=== PATIENT | male | born 1975 | race Caucasian/White ===

== ENCOUNTER 2016-12-10 09:36 | Emergency (ER) | payer OTHER ==
[2015-12-30 08:11] VITALS: BMI 31.4
[~2016-12-10 09:36] MED LIST: GABAPENTIN100 MG PO; HYDROCODONE-APA1 TAB PO; LISINOPRIL10 MG PO; MOBIC7.5 MG PO; NAPROSYN500 MG PO; ZANTAC150 MG PO
[2016-12-10 10:51] LABS: UDS - AMPHET NEGATIVE QUAL (NEGATIVE); UDS - BARB NEGATIVE QUAL (NEGATIVE); UDS - BENZO NEGATIVE QUAL (NEGATIVE); UDS - COCAINE NEGATIVE QUAL (NEGATIVE); UDS - METH NEGATIVE QUAL (NEGATIVE); UDS - OPIATE POSITIVE QUAL (NEGATIVE); UDS - PCP NEGATIVE QUAL (NEGATIVE); UDS - THC NEGATIVE QUAL (NEGATIVE)
[2016-12-10 10:56] LABS: APPEARANCE CLEAR (CLEAR); BILIRUBIN NEGATIVE (NEGATIVE); COLOR YELLOW (YELLOW); GLUCOSE NEGATIVE (NEGATIVE); KETONE NEGATIVE (NEGATIVE); LEUKOCYTE ESTERASE NEGATIVE (NEGATIVE); NITRITE NEGATIVE (NEGATIVE); PROTEIN NEGATIVE (NEGATIVE); UROBILINOGEN NORMAL (NORMAL)
[2016-12-10 10:58] LABS: CKMB 0.6 U/L (0.0-3.6); CREATINE KINASE 97 UL (21-232); THYROID STIMULATING HORMONE 2.58 uIU/mL (0.36-3.74); TROPONIN-I < 0.017 ng/mL (0.000-0.060)
== END 2016-12-10 12:27 | disposition home or self-care (01) ==
LOC: D.ER 09:36
PROVIDERS: Emergency Medicine
DX: R07.9 Chest pain, unspecified (principal); R00.2 Palpitations; R06.00 Dyspnea, unspecified; I49.3 Ventricular premature depolarization

== ENCOUNTER → 2017-01-03 13:43 | Outpatient (CLI) | payer OTHER ==
[2015-12-30 08:11] VITALS: BMI 31.4
== END | disposition home or self-care (01) ==
LOC: D.RT 13:43
DX: R06.02 Shortness of breath (principal)

== ENCOUNTER → 2017-01-15 08:38 | Outpatient (CLI) | payer OTHER ==
[2015-12-30 08:11] VITALS: BMI 31.4
--- NOTE | ~2017-01-15 | EC ---
PATIENT:YOLA PICHARDO DATE OF SERVICE: 01/15/17 SEX: M MEDICAL RECORD: [id number] DATE OF : 77 [facility] AGE OF PATIENT: 41 ADMISSION DATE: 01/15/17 REFERRING PHYSICIAN: INTERPRETING PHYSICIAN: NESTOR ANN MD ECHOCARDIOGRAM REPORT ECHO CHARGES 4 ECHO COMPLETE CLINICAL DIAGNOSIS: HTN HX OF BRADYCARDIA / ARRHYTHMIA ECHOCARDIOGRAPHIC MEASUREMENTS (adult normal given) AC root (d.<3.7cm) 3.4 cm LV Septum d (<1.2 cm> 1.1 cm Valve Excursion 1.8 cm LV Septum (systole) 1.3 cm Left Atria (s.<4.0cm> 4.1 cm LVPW d(<1.2cm) 1.1 cm RV (d.<2.3cm) 3.5 cm LVPW (sytole) 1.4 cm LV diastole(<5.6CM) 5.1 cm MV E-F(>70mm/sec) cm LV systole 4.2 cm LVOT Diameter 1.8 cm MV exc.(>10mm) 1.9 cm Est.ejection fraction (50-75%) % Pericardial Effusion N DOPPLER: LVIT cm/sec A 64.0 cm/sec E 92.0 cm/sec LA cm/sec RVSP 27 mmHg LVOT 96 cm/sec AOP1/2T m/s Asc. Ao 114 cm/sec RVOT 51 cm/sec RA cm/sec PA 109 cm/sec AV Gradient Peak 5.17 mmHg AV Mean 2.75 mmHg AV Area 2.3 cm MV Gradient Peak 3.62 mmHg MV Mean 1.64 mmHg MV Area cm COMMENTS: Book Jogger: Macy BLANKENSHIP Brusher Tender: 4 Dr. Ann TAPE# PACS DATE OF SERVICE: 01/15/2017 PROCEDURE: Transthoracic echocardiogram. FINDINGS: 1. The left ventricle is shown to be on the upper limits of normal to mildly dilated at 5.6 cm. The inflow characteristics are normal. There is considerable amount of dyssynchronous wall motion because of what appears to be an underlying bundle-branch block. The ejection fraction appears to be mildly reduced at 45%. ECHOCARDIOGRAM REPORT [id number] YOLA PICHARDO 2. The mitral valve structurally appears to be normal with mild mitral regurgitation. 3. The left atrium is mildly dilated with normal function. 4. The right atrium is mildly dilated with normal function. 5. The right ventricle is shown to be mildly dilated with preserved right ventricular function. 6. The aortic valve has trace aortic insufficiency, otherwise is grossly normal. 7. The tricuspid valve has trace tricuspid regurgitation with normal right ventricular systolic pressures. 8. The pulmonary valve is normal. 9. The pericardium is normal. CONCLUSION: The patient has mild dilated cardiomyopathy without significant regional wall motion abnormalities. TRANSINT:[id number] Voice Confirmation ID: [id number] DOCUMENT ID: [id number] NESTOR ANN MD CC: [id number] DICTATION DATE: 01/16/17 1503 SKI TOPPER: 01/16/171925 DEP CLI 01/15/17 [facility] [address] [place] [address]
== END | disposition home or self-care (01) ==
LOC: D.ECHO 08:38
DX: I10 Essential (primary) hypertension (principal)

== ENCOUNTER 2017-01-29 06:37 | Outpatient (CLI) | payer OTHER ==
--- NOTE | ~2017-01-29 | HEMODYNAMI ---
PATIENT:YOLA PICHARDO MEDICAL RECORD: [id number] : 77 LOCATION:[facility] ADMISSION DATE: 01/29/17 Generatedon:01/29/20178:26 Patient name: YOLA PICHARDO Patient #: [id number] SSN: : [id number] Date of study: 01/29/2017 Page: Of Hemodynamic Procedure Report Patient Data Patient Demographics Procedure consent was obtained First Name: YOLA Gender: Male Last Name: MARINO : 1975 [facility] Initial: ROLAN Age: 41 year(s) Patient #: [id number] Race: Unknown Additional ID: [id number] Contact details Address: [place] [address] State: [facility] Zip code: [address] Admission Admission Data Admission Date: 01/29/2017 Admission Time: 6:37 Lab Results Lab Result Date: 01/29/2017 Lab Result Time: 0:00 Biochemistry Name Units Result Min Max Creatinine mg/dl 1.1 --(--*-)-- 0.6 1.3 CBC Name Units Result Min Max Hemoglobin g/dl 15.3 --(-*--)-- 13.5 17.5 Procedure Procedure Types Cath Procedure Diagnostic Procedure [facility] w/Coronaries Miscellaneous Procedures Moderate Sedation up to 30 minutes Procedure Description Procedure Date Procedure Date: 01/29/2017 Procedure Start Time: 8:07 Procedure End Time: 8:25 Procedure Staff Name Function Kevin Carolina MD Performing Physician Anne Arias RT Scrub Henry Pinto RT Scrub Brandin Holland RN Nurse Talia Snyder RT Monitor Christy Martin RN Business Development Sales Executive Procedure Data Cath Procedure Fluoroscopy Diagnostic fluoroscopy Total fluoroscopy Time: 5.6 time: 5.6 min min Diagnostic fluoroscopy Total fluoroscopy dose: 426 dose: 426 mGy mGy Contrast Material Contrast Material Type Amount (ml) Isovue 300 36 Entry Location Entry Primary Successful Side Size Upsize Upsize Entry Closure Horn ccessful Closure Location (Fr) 1 (Fr) 2 (Fr) Remarks Device Remarks Radial Right 6 Fr Mechanical artery Short Compression Estimated blood loss: 5 ml Diagnostic catheters Device Type Used For End Catheter Placement Terumo 5Fr Aldair 110cm LV Angiography catheter Terumo 5Fr Aldair 110cm Left Coronary catheter Angiography Terumo 5Fr Aldair 110cm Right Coronary catheter Angiography Diagnostic Infinity 5Fr Right Coronary AR 2 MOD catheter Angiography Procedure Complications No complications Procedure Medications Medication Administration Route Dosage 0.9% NaCl I.V. 100 ml/hr Oxygen NC 2 l/min Heparin Flush Bag added to field 2 bags (1000units/500ml NS) Lidocaine 2% added to field 20 Versed I.V. 2 mg Fentanyl I.V. 25 mcg Radial Cocktail added to field 1 syringe (Verapomil 2mg/Nitro 400mcg/Heparin 1500units) Radial Cocktail I.A. 1 syringe (Verapomil 2mg/Nitro 400mcg/Heparin 1500units) Versed I.V. 1 mg Fentanyl I.V. 25 mcg Benadryl I.V. 25 mg Hemodynamics Rest HGB: 15.3 (g/dl) Heart Rate: 88 (bpm) Pressure Samples Time Site Value (mmHg) Purpose Heart Use Rate(bpm) 8:12 LV 117/7,10 EDP 96 8:13 AO 114/84(97) Pullback 91 8:13 LV 116/10,15 Pullback 91 Gradients Valve Time Site 1 Site 2 Mean SEP/DFP Peak To Heart Use (mmHg) (sec/min) Peak Rate (mmHg) (bpm) Aortic 8:13 LV AO 2 8 2 91 116/10,15 114/84(97) Calculations Valve P-P Mean Valve Index Valve Source Name Gradient Area Flow (cm2) Aortic 2 2 2 2 Snapshots Pre Cath Intra NCS Post Cath Vital Signs Time Heart Resp SPO2 etCO2 [id number] NIBP (mmHg) Rhythm Pain Sedation Rate (ipm) (%) (mmHg) (mmHg) Status Level (bpm) 7:54:38 84 16 98 0 0 157/104(135) NSR 0 (11) 10(A) , No pain 7:59:22 83 15 92 0 0 158/92(112) NSR 0 (11) 10(A) , No pain 8:04:11 80 21 99 0 0 151/91(118) NSR 0 (11) 10(A) , No pain 8:08:58 83 14 98 0 0 153/96(127) NSR 0 (11) 10(A) , No pain 8:13:42 92 20 95 0 0 126/83(100) NSR 0 (11) 10(A) , No pain 8:18:23 86 21 94 0 0 130/86(103) NSR 0 (11) 10(A) , No pain 8:23:04 86 16 96 0 0 133/84(106) NSR 0 (11) 10(A) , No pain Medications Time Medication Route Dose Verified Delivered Reason Notes E ffectiveness by by 7:53:05 0.9% NaCl I.V. 100 Brandin Brandin Per ml/hr Amalia Holland physician RN RN 7:53:24 Oxygen NC 2 l/min Brandin Brandin Per Amalia Holland physician RN RN 7:53:41 Heparin Flush added 2 bags Brandin Brandin used for Bag to Amalia Holland procedure (1000units/500ml RN RN NS) 7:53:59 Lidocaine 2% added 20ml Brandin Brandin for local to vial Lorigan Lorigan anesthetic field RN RN 8:04:41 Versed I.V. 2 mg Brandin Brandin for sedation Amalia Holland RN RN 8:04:55 Fentanyl I.V. 25 mcg Brandin Brandin for sedation Amalia Holland RN RN 8:06:47 Radial Cocktail added 1 Brandin Brandin used for (Verapomil to syringe Lorigan Lorigan procedure 2mg/Nitro RN RN 400mcg/Heparin 1500units) 8:11:20 Radial Cocktail I.A. 1 Brandin Kevin for (Verapomil syringe Amalia Carolina MD vasodilation 2mg/Nitro RN 400mcg/Heparin 1500units) 8:18:14 Versed I.V. 1 mg Brandin Brandin for sedation Amalia Holland RN RN 8:18:23 Fentanyl I.V. 25 mcg Brandin Brandin for sedation Amalia Holland RN RN 8:21:06 Benadryl I.V. 25 mg Brandin Brandin Per Amalia Holland physician RN net applications developer Log Time Note 7:23:42 Lab Result : Creatinine 1.1 mg/dl 7:23:42 Lab Result : Hemoglobin 15.3 g/dl 7:40:25 Christy Martin RN sent for patient. Start room use. 7:40:26 Time tracking: Regular hours 7:40:32 Plan of Care:Hemodynamics will remain stable., Cardiac rhythm will remain stable., Comfort level will be maintained., Respiratory function will remain adequate., Patient/ family verbilizes understanding of procedure., Procedure tolerated without complication., Recovers from procedure without complications.. 7:46:34 Patient received from Pre/Post Procedure Room to CCL 1 Alert and oriented. Tansferred to table in Supine position. 7:46:35 Warm blankets applied, and pauline hugger turned on for patient comfort. 7:46:35 Correct patient and procedure confirmed by team. 7:46:37 Signed procedure consent form obtained from patient. 7:46:37 ECG and BP/O2 sat monitors applied to patient. 7:46:38 Full Disclosure recording started 7:52:53 Vital chart was started 7:52:58 Baseline sample Acquired. 7:53:05 0.9% NaCl 100 ml/hr I.V. was administered by Brandin Holland RN; Per physician; 7:53:05 Rhythm: sinus rhythm 7:53:20 H&P Date Dictated: 01/24/2017 Within 30 days and on chart., H&P Addendum completed by physician on day of procedure. (MUST COMPLETE FOR ALL OUTPATIENTS). 7:53:21 Pre-procedure instructions explained to patient. 7:53:22 Pre-op teaching completed and patient verbalized understanding. 7:53:24 Oxygen 2 l/min NC was administered by Brandin Holland RN; Per physician; 7:53:41 Heparin Flush Bag (1000units/500ml NS) 2 bags added to field was administered by Brandin Holland RN; used for procedure; 7:53:43 Family in waiting room. 7:53:45 Patient NPO since Midnight. 7:53:47 Is the patient allergic to Iodine/contrast media? No. 7:53:57 Is patient on blood thinner?Yes 7:53:59 Lidocaine 2% 20ml vial added to field was administered by Brandin Holland RN; for local anesthetic; 7:54:00 ACC The patient was administered the following blood thiners within the last 24 hours: ACCPlavix 7:54:02 Patient diabetic? No. 7:54:05 Previous problem with sedation/anesthesia? No ? 7:54:10 Snore? No 7:54:11 Sleep apnea? No 7:54:13 Deviated septum? No 7:54:14 Opens mouth fully? Yes 7:54:15 Sticks out tongue? Yes 7:54:17 Airway obstruction? No ? 7:54:19 Dentures? No ? 7:54:21 Pre procedure: right dorsailis pedis pulse 1+ Palpable, but thready & weak; easily obliterated 7:54:24 Modified Chapito's test Ulnar < 7 seconds 7:54:26 Patient pain scale 0/10 ?. 7:54:33 IV patent on arrival in left forearm with 0.9% NaCl at [facility]. 7:54:35 Lab results completed and on chart. 7:54:39 Right Radial & Right Groin area was prepped with chlora-prep and draped in sterile fashion 7:54:41 Alarms reviewed by R. N. 7:54:42 Sharps counted by scrub and verified by R.N. 7:54:49 Use device set Radial Dx 7:54:51 Tegaderm 4 x 4 opened to sterile field. 7:54:52 Acist Hand Control opened to sterile field. 7:54:53 Acist Manifold opened to sterile field. 7:54:54 Acist Syringe opened to sterile field. 7:54:54 Medline Cath Pack opened to sterile field. 7:54:55 Bag Decanter opened to sterile field. 7:54:55 Terumo 6Fr Slender Glidesheath opened to sterile field. 7:54:55 St Ralf 260cm J .035 wire opened to sterile field. 7:54:56 MBrace Wrist Support opened to sterile field. 7:58:42 Final Timeout: patient, procedure, and site verified with staff and physician. All members of the team are in agreement. 7:58:46 Right Radial site verified by team. 7:58:52 Physical assessment completed. ASA score P 2 - A patient with mild systemic disease as per Kevin Carolina MD. 7:58:56 Sedation plan: IV Moderate Sedation Versed, Fentanyl 8:03:11 Zero performed for pressure channel P1 8:04:41 Versed 2 mg I.V. was administered by Brandin Holland RN; for sedation; 8:04:55 Fentanyl 25 mcg I.V. was administered by Brandin Holland RN; for sedation; 8:06:47 Radial Cocktail (Verapomil 2mg/Nitro 400mcg/Heparin 1500units) 1 syringe added to field was administered by Brandin Holland RN; used for procedure; 8:07:09 Procedure started. 8:07:32 Local anesthetic to right radial artery with Lidocaine 2% by Kevin Carolina MD.INITIAL ACCESS ONLY 8:10:20 A 6 Fr Short sheath was inserted into the Right Radial artery 8:11:20 Radial Cocktail (Verapomil 2mg/Nitro 400mcg/Heparin 1500units) 1 syringe I.A. was administered by Kevin Carolina MD; for vasodilation; 8:11:20 A Terumo 5Fr Aldair 110cm catheter was advanced over the wire and used for LV Angiography. 8:12:48 LV gram done using RICO 8:12:52 Injector settings: Ml/sec: 12, Volume: 8, 8:12:54 LV hemodynamics recorded. 8:13:44 A Terumo 5Fr Aldair 110cm catheter was advanced over the wire and used for Left Coronary Angiography. 8:18:14 Versed 1 mg I.V. was administered by Brandin Holland RN; for sedation; 8:18:23 Fentanyl 25 mcg I.V. was administered by Brandin Holland RN; for sedation; 8:19:07 A Terumo 5Fr Aldair 110cm catheter was advanced over the wire and used for Right Coronary Angiography. REMOVED. UNABLE TO CANNULATE. 8:20:16 A Diagnostic Infinity 5Fr AR 2 MOD catheter was advanced over the wire and used for Right Coronary Angiography. 8:21:06 Benadryl 25 mg I.V. was administered by Brandin Holland RN; Per physician; 8:21:22 Catheter removed. 8:22:00 Terumo TR Band Large opened to sterile field. 8:22:07 Sheath removed intact; hemostasis achieved with Mechanical Compression to the Right Radial artery. 8:22:09 Procedure ended.(Physican Out) 8:22:18 Fluoroscopy time 05.60 minutes. 8:22:24 Fluoroscopy dose: 426 mGy 8:22:24 Flurop Dose total: 426 8:22:31 Contrast amount:Isovue 300 36ml. 8:22:32 Sharps counted by scrub and verified by R.N. 8:22:34 TR band inflated with 12cc of air. 8:22:35 Insertion/operative site no bleeding no hematoma. 8:22:44 Post right radial artery:stable, clean and dry 8:22:45 Post Procedure Pulses reassessed and unchanged 8:22:49 Post-procedure physical assessment completed. ASA score P 2 - A patient with mild systemic disease as per Kevin Carolina MD. 8:22:51 Post procedure rhythm: unchanged. 8:22:53 Estimated blood loss: 5 ml 8:23:03 Post procedure instruction explained to patient.Patient verbalizes understanding. 8:23:03 Patient needs reinforcement of post procedure teaching. 8:23:12 Procedure type changed to Cath procedure, Diagnostic procedure, LHC, LHC w/Coronaries, Miscellaneous Procedures, Moderate Sedation up to 30 minutes 8:23:18 Procedure Complication : No complications 8:23:20 See physician's report for complete and final results. 8:23:34 Procedure and supply charges have been captured, reviewed, submitted and are correct. 8:25:37 Vital chart was stopped 8:25:40 Report given to Pre/Post Procedure Room. 8:25:43 Patient transfered to Pre/Post Procedure Room with Stretcher. 8:25:51 Procedure ended. 8:25:51 Full Disclosure recording stopped 8:25:57 End room use (Document Last) Device Usage Item Name Manufacture Quantity Catalog Hospital Part Current Minimal Lot# / Number Charge Number Stock Stock Serial# Code Tegaderm 4 1 [id number] 5 x 4 Acist Hand Acist 1 46061 583103 644566 [id number] 5 Control [employer] Inc Acist Acist 1 08499 438583 605901 616052 5 Manifold Medical [employer] Inc Acist Acist 1 60152 038337 825733 292292 20 Syringe Medical Systems Inc Medline Cardinal 1 [id number] 55344 146835 5 Cath Pack Health Bag Microtek 1 2001S [id number] 50602 901683 5 [employer]aze [employer] Terumo 6Fr Terumo 1 [id number] 841237 900900 390154 [address] R[address] St Ralf 1 445282 333742 053007 375941 30 260cm J .035 wire MBrace Advanced 1 [id number] 375444 77129 702594 5 Wrist Vascular Support Dynamics Terumo 5Fr Terumo 1 36-0424 [id number] 273779 417475 5 Aldair 110cm catheter Diagnostic Cardinal 1 [id number] 968819 655377 037362 20 Infinity [employer] 5Fr AR 2 MOD catheter Terumo TR Terumo 1 [id number] 395065 757229 825440 40 Band Large Signature Audit [place] Stage Time Signature Unsigned Intra-Procedure 01/29/2017 Talia 8:26:08 AM Counts RT(R) Signatures Monitor : Talia Signature : Counts RT Date : Time : [address] [place] [address]
[2017-01-29] MEDS ORDERED: HCTZ25 MG PO (06:46)
[2017-01-29] MEDS ORDERED: ROBAXIN500 MG PO (06:47)
[2017-01-29] MEDS ORDERED: TESTOSTERON200 MG/ML IM (06:48)
[2017-01-29] MEDS ORDERED: FISH OIL 1,2001 CAP PO (06:48)
[2017-01-29] MEDS ORDERED: ADVIL200 MG PO (06:49)
[2017-01-29] MEDS ORDERED: LIPITOR10 MG PO (06:50)
[2017-01-29 06:57] VITALS: BP 158/99; BMI 29.2
[2017-01-29 07:04] LABS: BASOPHILS 0.2 % (0-2); EOSINOPHILS 3.4 % (0-7); HEMATOCRIT 42.4 % (42.0-54.0); HEMOGLOBIN 15.3 g/dL (13.5-17.5); IMMATURE GRANULOCYTES 0.2 % (0-5); MCH 30.7 pg (26.0-34.0); MCHC 36.1 g/dL (31.0-37.0); MEAN PLATELET VOLUME 10.5 fL (7.4-10.4); MONOCYTES 13.1 % (2-11); NEUTROPHILS 58.1 % (40-80); PLATELET COUNT 178 10x3/uL (130-400); RBC 4.99 10x6/uL (4.20-6.10); RDW 13.1 % (11.5-14.5); WBC 6.5 10x3/uL (4.8-10.8)
[2017-01-29 07:11] LABS: CALC OSMOLALITY 272 mosm/kg (275-300); CALCIUM 8.5 mg/dL (8.5-10.1); CARBON DIOXIDE 27.8 mmol/L (21.0-32.0); CHLORIDE - SERUM 101 mmol/L (98-107); CREATININE - SERUM 1.1 mg/dL (0.6-1.3); GLUCOSE 100 mg/dL (74-106); POTASSIUM - SERUM 3.5 mmol/L (3.5-5.1); SODIUM 135 mmol/L (136-145); UREA NITROGEN 20 mg/dL (7-18); eGFR NON AFRICAN AMERICAN 79 mL/min (90-120)
--- NOTE | 2017-01-29 08:48 | NUR ---
RECIEVED TO ROOM VIA STRETCHER FROM CUSTOMER SUCCESS SPECIALIST WITH TR BAND TO THE R/WRIST CDI NO BLEEDING NO HEMATOMA NOTED. REPORTS OF A CLEAN CATH WITH NO INTERVENTION AT THIS TIME. VSS WITH CHEST PAIN DENIED
--- NOTE | 2017-01-29 08:55 | NUR ---
SITTING WITH HOB UP 30 DEGREES VSS AND CHEST PAIN DENIED. TR BAND TO R/WRIST CDI NO BLEEDING NO HEMATOMA NOTED. INSTRUCTED PATIENT TO KEEP RUE STRAIGHT NO BENDING OR FLEXING OF WRIST. TOLERATING SANDWICH AND SODA WITH NAUSEA DENIED.
--- NOTE | 2017-01-29 09:20 | NUR ---
VSS WITH CHEST PAIN DENIED. SITTING WITH HOB UP 30 DEGREES FAMILY IS AT BEDSIDE. 2 CC AIR REMOVED FROM TR BAND WITH NO BLEEDING NO HEMATOMA NOTED.
--- NOTE | 2017-01-29 09:30 | NUR ---
3CC OF AIR REMOVED FROM TR BAND, NO BLEEDING NOTED.
--- NOTE | 2017-01-29 09:35 | NUR ---
2 CC AIR REMOVED FROM TR BAND WITH NO BLEEDING NOTED
--- NOTE | 2017-01-29 09:50 | NUR ---
PIV REMOVED WITH DRESSING APPLIED. 2 CC AIR REMOVED FROM TR BAND WITH NO BLEEDING NO HEMATOMA NOTED. PATIENT DENIED CHEST PAIN WITH VSS. UP TO GET DRESSED FOR DISCHARGE HOME
--- NOTE | 2017-01-29 09:55 | NUR ---
UP TO RESTROOM TO VOID.
--- NOTE | 2017-01-29 10:00 | NUR ---
REMAINING AIR REMOVED FROM TR BAND AND DRESSING PLACED TO SITE. DISCHARGE INSTRUCTIONS GIVEN, VERBALIZED UNDERSTANDING.
--- NOTE | 2017-01-29 10:08 | NUR ---
TAKEN OUT VIA WHEELCHAIR BY CATH ADMINISTRATIVE FELLOW. LEFT FACILITY WITH FAMILY MEMBER AND ALL PERSONAL BELONGINGS.
[2017-02-14] MEDS ORDERED: KEFLEX500 MG PO (10:06)
== END 2017-01-29 10:08 | disposition home or self-care (01) ==
LOC: D.CATH 06:37
PROVIDERS: Internal Medicine Cardiovascular Disease
DX: R07.9 Chest pain, unspecified (principal); I47.1 Supraventricular tachycardia; I10 Essential (primary) hypertension; R94.39 Abnormal result of other cardiovascular function study; Z82.49 Family history of ischemic heart disease and other diseases of the circulatory system; Z01.812 Encounter for preprocedural laboratory examination

== ENCOUNTER → 2017-02-14 06:24 | Outpatient (CLI) | payer OTHER ==
--- NOTE | ~2017-02-14 | HEMODYNAMI ---
PATIENT:YOLA PICHARDO MEDICAL RECORD: [id number] : 77 LOCATION:D.CAT ADMISSION DATE: 02/14/17 Generatedon:02/14/20179:23 Patient name: YOLA PICHARDO Patient #: [id number] SSN: : [id number] Date of study: 02/14/2017 Page: Of Hemodynamic Procedure Report Patient Data Patient Demographics Procedure consent was obtained First Name: YOLA Gender: Male Last Name: MARINO : 1975 [facility] Initial: ROLAN Age: 41 year(s) Patient #: [id number] Race: Unknown Additional ID: [id number] Contact details Address: [place] [address] State: [facility] Zip code: [address] Past Medical History Allergies Allergen Reaction Date Comments Reported Codeine 02/14/2017 Admission Admission Data Admission Date: 02/14/2017 Admission Time: 6:24 Procedure Procedure Types Cath Procedure Diagnostic Procedure PPM/ICD PPM Dual Implant Procedure Description Procedure Date Procedure Date: 02/14/2017 Procedure Start Time: 7:08 Procedure Staff Name Function Kevin Carolina MD Performing Physician Aby Gill RT Scrub Angelo Garcia RN Nurse Maikel Antonio RT Monitor Procedure Data Cath Procedure Fluoroscopy Diagnostic fluoroscopy Total fluoroscopy Time: 3.7 time: 3.7 min min Diagnostic fluoroscopy Total fluoroscopy dose: dose: 93.9 mGy 93.9 mGy Contrast Material Contrast Material Type Amount (ml) Visipaque 270 10 Estimated blood loss: 10 ml Procedure Medications Medication Administration Route Dosage Ancef (1Gm/50ml NS) I.V.P.B 1 g Ancef Irrigation Topical 1 g (1gm/500ml NS) 0.9% NaCl I.V. 100 ml/hr Versed I.V. 2 mg Fentanyl I.V. 50 mcg Versed I.V. 2 mg Fentanyl I.V. 50 mcg Versed I.V. 2 mg Fentanyl I.V. 50 mcg Versed I.V. 1 mg Hemodynamics Rest Heart Rate: 72 (bpm) Snapshots Pre Cath Intra NCS Post Cath Vital Signs Time Heart Resp SPO2 NIBP (mmHg) Rhythm Pain Sedation Rate (ipm) (%) Status Level (bpm) 8:11:05 69 17 98 139/94(102) NSR 0 (11) 10(A) , No pain 8:16:13 69 18 99 147/80(112) NSR 0 (11) 10(A) , No pain 8:21:34 76 16 98 140/91(120) NSR 0 (11) 10(A) , No pain 8:25:55 73 19 98 145/90(123) NSR 0 (11) 10(A) , No pain 8:30:15 81 18 97 145/93(118) NSR 0 (11) 10(A) , No pain 8:35:47 79 18 96 133/83(95) NSR 0 (11) 10(A) , No pain 8:39:58 74 16 98 121/94(110) NSR 0 (11) 10(A) , No pain 8:44:51 85 18 98 144/98(122) NSR 0 (11) 10(A) , No pain 8:49:05 72 17 99 139/89(106) NSR 0 (11) 10(A) , No pain 8:53:19 75 17 98 140/97(119) NSR 0 (11) 10(A) , No pain 8:57:39 64 18 97 134/87(102) NSR 0 (11) 10(A) , No pain 9:01:50 81 17 97 138/94(112) NSR 0 (11) 10(A) , No pain 9:06:52 76 18 97 132/97(111) NSR 0 (11) 10(A) , No pain 9:11:09 72 18 98 138/90(121) NSR 0 (11) 10(A) , No pain 9:15:23 82 17 98 144/98(113) NSR 0 (11) 10(A) , No pain 9:19:43 79 18 98 141/110(117) NSR 0 (11) 10(A) , No pain Medications Time Medication Route Dose Verified Delivered Reason Notes Effectiven ess by by 8:09:23 Ancef I.V.P.B 1 g Kevin Arboleda (1Gm/50ml Ge Garcia RN physician NS) 8:09:33 Ancef Topical 1 g Kevin Angelo Per Irrigation Ge Garcia RN physician (1gm/500ml NS) 8:09:47 0.9% NaCl I.V. 100 Kevin Angelo Per ml/hr Ge Garcia RN physician MD 8:27:13 Versed I.V. 2 mg Kevin Angelo for Ge Garcia RN sedation 8:27:21 Fentanyl I.V. 50 Kevin Angelo for mcg Ge Garcia RN sedation 8:32:13 Versed I.V. 2 mg Kevin Angelo for Ge Garcia RN sedation 8:32:18 Fentanyl I.V. 50 Kevin Angelo for mcg Ge Garcia RN sedation 8:41:36 Versed I.V. 2 mg Kevin Angelo for Ge Garcia RN sedation 8:51:01 Fentanyl I.V. 50 Kevin Angelo for mcg Ge Garcia RN sedation 9:02:49 Versed I.V. 1 mg Kevin Angelo for Ge Garcia RN sedation Procedure Log Time Note 8:00:53 Maikel Antonio RT(R) (CV) sent for patient. Start room use. 8:09:23 Ancef (1Gm/50ml NS) 1 g I.V.P.B was administered by Angelo Garcia RN; Per physician; 8:09:33 Ancef Irrigation (1gm/500ml NS) 1 g Topical was administered by Angelo Garcia RN; Per physician; 8:09:47 0.9% NaCl 100 ml/hr I.V. was administered by Angelo Garcia RN; Per physician; 8:10:00 Vital chart was started 8:13:21 Diagnostic Cath Status : Elective 8:14:07 Time tracking: Regular hours 8:14:12 Plan of Care:Hemodynamics will remain stable., Cardiac rhythm will remain stable., Comfort level will be maintained., Respiratory function will remain adequate., Patient/ family verbilizes understanding of procedure., Procedure tolerated without complication., Recovers from procedure without complications.. 8:14:21 Patient received from Pre/Post Procedure Room to [facility] 3 Alert and oriented. Tansferred to table in Supine position. 8:14:23 Warm blankets applied, and pauline hugger turned on for patient comfort. 8:14:24 Correct patient and procedure confirmed by team. 8:14:27 Signed procedure consent form obtained from patient. 8:14:28 ECG and BP/O2 sat monitors applied to patient. 8:14:29 Baseline sample Acquired. 8:14:45 Rhythm: sinus rhythm 8:14:46 Full Disclosure recording started 8:15:14 H&P Date Dictated: 02/12/2017 Within 30 days and on chart., H&P Addendum completed by physician on day of procedure. (MUST COMPLETE FOR ALL OUTPATIENTS). 8:15:18 Pre-procedure instructions explained to patient. 8:15:21 Family in waiting room. 8:15:24 Patient NPO since Midnight. 8:15:29 Patient allergic to Codeine 8:15:33 Is the patient allergic to Iodine/contrast media? No. 8:15:38 Patient diabetic? No. 8:15:40 ----Pre-sedation anethsthesia assessment.---- 8:15:42 Previous problem with sedation/anesthesia? No ? 8:15:44 Snore? No 8:15:45 Sleep apnea? No 8:15:47 Deviated septum? No 8:15:48 Opens mouth fully? Yes 8:15:49 Sticks out tongue? Yes 8:15:51 Airway obstruction? No ? 8:15:53 Dentures? No ? 8:15:58 Patient pain scale 0/10 ?. 8:16:07 IV patent on arrival in left forearm with 0.9% NaCl at [facility]. 8:16:28 Left chest area was prepped with chlora-prep and draped in sterile fashion 8:16:30 Alarms reviewed by R. N. 8:16:31 Sharps counted by scrub and verified by R.N. 8:19:12 Use device set Pacemaker Set 8:19:30 2-0 Vicryl Plus [id number] opened to sterile field. 8:19:31 2.0 Silk 685H opened to sterile field. 8:19:32 Stapler Skin 35W Proximate Plus opened to sterile field. 8:19:33 Cautery Tip Rn Transitional opened to sterile field. 8:19:41 Cautery Pushbutton Pencil opened to sterile field. 8:19:44 Immobilizer Sling Medium opened to sterile field. 8:20:18 Micropuncture VSI 4FR kit opened to sterile field. 8:20:19 Micropuncture VSI 4FR kit opened to sterile field. 8:21:52 Medtronic Advisa MRI PPM Dual Generator [id number] opened to sterile field. 8:21:53 Medtronic 4074-52 PPM Lead opened to sterile field. 8:21:54 Medtronic 5076-45 PPM Lead opened to sterile field. 8:22:06 7Fr Safe Sheath opened to sterile field. 8:22:07 7Fr Safe Sheath opened to sterile field. 8:22:50 Pre sharps counted by scrub and verified by RN: Sutures: 2 Sponges: 15 Stick needles: 4 Skin needles: 2 Blade: 1 Cautery: 1 8:24:28 Grounding pad site Right thigh. 8:26:13 Physician arrived 8:26:14 --------ALL STOP TIME OUT------ 8:26:14 Final Timeout: patient, procedure, and site verified with staff and physician. All members of the team are in agreement. 8:26:19 Left chest site verified by team. 8:26:23 Physical assessment completed. ASA score P 2 - A patient with mild systemic disease as per Kevin Carolina MD. 8:26:27 Sedation plan: IV Moderate Sedation Versed, Fentanyl 8:27:13 Versed 2 mg I.V. was administered by Angelo Garcia RN; for sedation; 8:27:21 Fentanyl 50 mcg I.V. was administered by Angelo Garcia RN; for sedation; 8:29:30 Lidocaine 2% to left subclavicular area by Kevin Carolina MD. 8:32:13 Versed 2 mg I.V. was administered by Angelo Garcia RN; for sedation; 8:32:18 Fentanyl 50 mcg I.V. was administered by Angelo Garcia RN; for sedation; 8:34:26 Incision made to left subclavicular area. 8:34:31 Generator pocket made/opened. 8:41:36 Versed 2 mg I.V. was administered by Angelo Garcia RN; for sedation; 8:46:58 LEFT VEINOGRAPHY PERFORMED TO SUBCLAVIAN 8:47:04 Left subclavian vein accessed with 4Fr Micropuncture. 8:50:18 Left subclavian vein accessed with 4Fr Micropuncture. 8:50:33 Left subclavian vein accessed with 7Fr Peel Away Sheath. 8:51:00 Ventricular lead inserted and advanced. 8:51:01 Fentanyl 50 mcg I.V. was administered by Angelo Garcia RN; for sedation; 8:52:06 Peel-a-way sheath was split and removed. 8:52:10 Left subclavian vein accessed with 7Fr Peel Away Sheath. 8:52:17 Atrial lead inserted and advanced. 8:53:15 Peel-a-way sheath was split and removed. 8:53:38 Ventricular lead positioned. 8:54:54 Ventricular lead tested. 8:56:35 Ventricular lead attachment was completed with 2-0 silk. 9:00:03 Atrial lead tested. 9:02:49 Versed 1 mg I.V. was administered by Angelo Garcia RN; for sedation; 9:05:03 Atrial lead attachment was completed with 2-0 silk. 9:08:14 PPM Dual was attached to lead(s) and inserted into pocket. 9:11:03 Subcutaneous closure was completed with 3-0 vicryl. 9:13:16 Skin closure was completed with 35mm Jansen. 9:15:04 Procedure ended.(Physican Out) 9:15:13 Fluoroscopy time 03.70 minutes. 9:15:31 Fluoroscopy dose: 93.9 mGy 9:15:31 Flurop Dose total: 93.9 9:15:44 Contrast amount:Visipaque 270 10ml. 9:16:55 Post sharps counted by scrub and verified by RN: Sutures: 2 Sponges: 15 Stick needles: 4 Skin needles: 2 Blade: 1 Cautery: 1 9:18:19 Sharps counted by scrub and verified by R.N. 9:19:43 Insertion/operative site no bleeding no hematoma. 9:19:57 Post-op/insertion site Left Chest area dressed using a 4 x 4 and Tegaderm. 9:20:06 Post left subclavian vein:stable 9:20:15 Post procedure rhythm: sinus rhythm 9:20:19 Estimated blood loss: 10 ml 9:20:23 Post procedure instruction explained to patient.Patient verbalizes understanding. 9:20:23 Patient needs reinforcement of post procedure teaching. 9:21:57 Procedure and supply charges have been captured, reviewed, submitted and are correct. 9:22:02 Vital chart was stopped 9:22:02 See physician's report for complete and final results. 9:22:05 Report given to Pre/Post Procedure Room. 9:22:12 Patient transfered to Pre/Post Procedure Room with Stretcher. 9:23:01 End room use (Document Last) Device Usage Item Name Manufacture Quantity Catalog Hospital Part Current Minimal Lot# / Number Charge Number Stock Stock Serial# Code 2-0 Vicryl Ethicon 1 [id number] [id number] 5 Plus [id number] 2.0 Silk 685H Ethicon 1 685H [id number] 63417 927018 5 Stapler Skin Unknown 1 [id number] [id number] 5 35W Proximate Plus Cautery Tip Microtek 1 [id number] 557527 [id number] 5 [employer] Cautery Microtek 1 [id number] 08531 [id number] 5 [facility] [employer] Pencil Immobilizer [place] 1 [id number] [id number] 300586 669756 5 ing Medium Health Micropuncture VSI VASCULAR 2 [id number] 041964 856559 5 VSI 4FR kit SOLUTIONS Medtronic Medtronic 1 [id number] [id number] [id number] 5 Advisa MRI PPM Dual Generator [id number] Medtronic Medtronic 1 4074-52 [id number] 266877 5 4074-52 PPM Lead Medtronic Medtronic 1 5076-45 257530 609313 5 5076-45 PPM Lead 7Fr Safe Microtek 2 [id number] [id number] [id number] 10 [employer] Signature Audit [place] Stage Time Signature Unsigned Intra-Procedure 02/14/2017 Maikel Antonio 9:23:53 AM RT(R) (CV) Signatures Monitor : Maikel Antonio RT Signature : Date : Time : [facility] [address] [place] [address]
[~2017-02-14 06:24] MED LIST changes: +ADVIL200 MG PO; +FISH OIL 1,2001 CAP PO; +HCTZ25 MG PO; +KEFLEX500 MG PO; +LIPITOR10 MG PO; +ROBAXIN500 MG PO; +TESTOSTERON200 MG/ML IM
[2017-02-14 07:33] VITALS: BP 140/71; BMI 29.2
[2017-02-14 07:47] LABS: HEMATOCRIT 42.4 % (42.0-54.0); HEMOGLOBIN 14.8 g/dL (13.5-17.5); MCH 30.3 pg (26.0-34.0); MCHC 34.9 g/dL (31.0-37.0); MCV 86.9 fL (80.0-100.0); MEAN PLATELET VOLUME 10.3 fL (7.4-10.4); RBC 4.88 10x6/uL (4.20-6.10); WBC 6.4 10x3/uL (4.8-10.8)
[2017-02-14 07:56] LABS: CALC OSMOLALITY 285 mosm/kg (275-300); CALCIUM 8.9 mg/dL (8.5-10.1); CARBON DIOXIDE 27.6 mmol/L (21.0-32.0); CHLORIDE - SERUM 106 mmol/L (98-107); GLUCOSE 89 mg/dL (74-106); POTASSIUM - SERUM 4.2 mmol/L (3.5-5.1); SODIUM 142 mmol/L (136-145); UREA NITROGEN 24 mg/dL (7-18); eGFR NON AFRICAN AMERICAN 88 mL/min (90-120)
[2017-02-14 08:03] LABS: APTT 31.6 SECONDS (22.8-39.4); INR 0.94 (0.85-1.17); PROTIME 12.4 SECONDS (11.6-15.0)
== END | disposition home or self-care (01) ==
LOC: D.CATH 06:24
PROVIDERS: Internal Medicine Cardiovascular Disease
DX: I45.89 Other specified conduction disorders (principal); R55 Syncope and collapse; I10 Essential (primary) hypertension

== ENCOUNTER 2017-03-22 12:43 | Emergency (ER) | payer SELFPAY ==
[2017-02-14 07:33] VITALS: BMI 29.2
[2017-03-22 13:10] LABS: BASOPHILS 0.1 % (0-2); EOSINOPHILS 0.8 % (0-7); HEMATOCRIT 46.2 % (42.0-54.0); HEMOGLOBIN 16.6 g/dL (13.5-17.5); IMMATURE GRANULOCYTES 0.3 % (0-5); LYMPHOCYTES 9.4 % (15-50); MCH 30.6 pg (26.0-34.0); MCHC 35.9 g/dL (31.0-37.0); MCV 85.2 fL (80.0-100.0); MONOCYTES 7.8 % (2-11); NEUTROPHILS 81.6 % (40-80); PLATELET COUNT 203 10x3/uL (130-400); RBC 5.42 10x6/uL (4.20-6.10); RDW 12.8 % (11.5-14.5); WBC 13.1 10x3/uL (4.8-10.8)
[2017-03-22 14:05] LABS: ALBUMIN 3.5 g/dL (3.4-5.0); ALKALINE PHOSPHATASE 112 U/L (46-116); ALT (SGPT) 29 U/L (10-68); CALC OSMOLALITY 271 mosm/kg (275-300); CARBON DIOXIDE 29.3 mmol/L (21.0-32.0); CHLORIDE - SERUM 97 mmol/L (98-107); CREATININE - SERUM 1.4 mg/dL (0.6-1.3); GLUCOSE 105 mg/dL (74-106); POTASSIUM - SERUM 3.8 mmol/L (3.5-5.1); SODIUM 136 mmol/L (136-145); UREA NITROGEN 13 mg/dL (7-18); eGFR NON AFRICAN AMERICAN 60 mL/min (90-120)
[2017-03-22 14:17] LABS: CKMB 0.4 U/L (0.0-3.6); CREATINE KINASE 141 UL (21-232); TROPONIN-I < 0.017 ng/mL (0.000-0.060)
== END 2017-03-22 18:20 | disposition home or self-care (01) ==
LOC: D.ER 12:43
PROVIDERS: Family Medicine
DX: R07.9 Chest pain, unspecified (principal); R50.9 Fever, unspecified; R11.10 Vomiting, unspecified; Z95.0 Presence of cardiac pacemaker; R00.0 Tachycardia, unspecified